=== PATIENT | male | born 1975 | race Two or more races ===

== ENCOUNTER 2021-02-08 02:17 | Emergency (ER) | payer MEDICAID ==
[~2021-02-08] VITALS: Ht 177.8 cm; Wt 27.2 kg
[2021-02-08 02:19] VITALS: BP 0/0
[2021-02-08] MEDS ORDERED: SODIUM BICARBONATE 8.4% INJ 50ML SYRINGE IV ONE (02:25)
[2021-02-08] MEDS ORDERED: EPINEPHrine HCL 1 MG/10 ML SYRG IV ONE (02:25)
== END 2021-02-08 02:36 ==
LOC: ER 02:24
DX: R57.8 Other shock (principal); T14.90XA Injury, unspecified, initial encounter; X58.XXXA Exposure to other specified factors, initial encounter; Y93.89 Activity, other specified; Y92.89 Other specified places as the place of occurrence of the external cause; Y99.8 Other external cause status
CPT/HCPCS: 31500; 92950; 99291; J0171